=== PATIENT | male | born 1975 | race Caucasian/White ===

== ENCOUNTER 2018-02-25 05:52 | Emergency (ER) | payer OTHER ==
[~2018-02-25] VITALS: Ht 175.3 cm; Wt 83.9 kg
--- NOTE | 2018-02-25 06:12 | ED GENERAL ADULT ---
See Addendum History of Present Illness General Chief Complaint: Wheezing/Asthma Stated Complaint: ASTHMA EXACERBATION PER PT Source: patient Exam Limitations: no limitations Vital Signs & Intake/Output Vital Signs & Intake/Output Vital Signs Date Time Temp Pulse Resp B/P B/P Pulse O2 O2 Flow FiO2 Mean Ox Delivery Rate 02/26 0847 98.1 71 16 130/78 95 Room Air 02/25 0841 93 02/25 0615 94 Room Air 02/25 0559 98.7 70 20 127/87 94 Room Air Triage Note: PT HERE WITH C/O BEING AWOKEN WITH UNABLE TO BREATH. PER PT WOKE UP AT 2 AM AND HAD TO USE INHALER. PT REPORTS STOMACH IS "BOTHERING ME". PT REPORTS THIS IS BEEN GOING ON A FEW WEEKS. PT HAS NOT CALLED PMD BUT HAS GONE TO A WALK IN CLINIC AND WAS GIVEN INHALER. Triage Nurses Notes Reviewed? yes Onset: Abrupt Duration: hour(s): Timing: recent history HPI: 42 year old male presents to the Emergency Department for asthma attacks at night for the past few months. He reports increased use of his inhailer. He states that when he eats he feels full in his abdomen. The patient's was concerned because he was profoundly tachypnea earlier this evening. He says that he feels like it's something more than his asthma because he has abdominal bloating. He denies any fever or vomiting. He is moving his bowels normally. He does not have any abdominal pain. (Amrik Franco DO) Allergies Coded Allergies: No Known Allergies (02/25/18) Reconcile Medications Albuterol Sulfate (Proair Hfa) 90 MCG HFA.AER.AD 2 PUF INH Q4-6 PRN PRN SHORTNESS OF BREATH (Reported) Azithromycin (Zithromax) 250 MG TABLET 1 TAB PO DAILY pneumonia Metoclopramide HCl (Reglan) 10 MG TABLET 1 TAB PO 4 TIMES/DAY PRN GERD 30 minutes before meals and bedtime Omeprazole 40 MG CAPSULE.DR 1 CAP PO DAILY GERD Prednisone 20 MG TABLET 1 TAB PO BID asthma (Franki CARTAGENA,[place]) Past History Travel History Traveled to [place] past 21 day No Medical History Any Pertinent Medical History? see below for history Neurological: NONE EENT: NONE Cardiovascular: NONE Respiratory: asthma Gastrointestinal: NONE Hepatic: NONE Renal: NONE Musculoskeletal: NONE Psychiatric: NONE Endocrine: diabetes Blood Disorders: NONE Cancer(s): NONE DISTRICT CAPTAIN/Reproductive: NONE Surgical History Surgical History: cholecystectomy, knee surgery Psychosocial History What is your primary language Bengali Tobacco Use: Never used ETOH Use: denies use Illicit Drug Use: marijuana Family History Hx Contributory? No (Amrik Franco DO) Review of Systems Review of Systems Constitutional: Reports: see HPI. Denies: fever. EENTM: Reports: no symptoms. Denies: blurred vision, double vision, visual changes. Respiratory: Reports: see HPI. Cardiovascular: Reports: no symptoms. Denies: chest pain. GI: Reports: see HPI, bloating. Genitourinary: Reports: no symptoms. Musculoskeletal: Reports: no symptoms. Skin: Reports: no symptoms. Neurological/Psychological: Reports: no symptoms. Hematologic/Endocrine: Reports: no symptoms. Immunologic/Allergic: Reports: no symptoms. All Other Systems: Reviewed and Negative (Amrik Franco DO) Physical Exam Physical Exam General Appearance: well developed/nourished, alert, awake, mild distress Head: atraumatic, normal appearance Eyes: Bilateral: normal appearance, PERRL, EOMI. Ears, Nose, Throat: normal ENT inspection Neck: normal inspection, full range of motion Respiratory: Poor entry bilaterial Cardiovascular: regular rate/rhythm Peripheral Pulses: 4+ radial (R), 4+ radial (L) Gastrointestinal: soft, non-tender Back: normal inspection, normal range of motion Extremities: normal inspection, normal range of motion Neurologic/Psych: no motor/sensory deficits, awake, alert, oriented x 3 Skin: intact, normal color, warm/dry Core Measures ACS in differential dx? No CVA/TIA Diagnosis: No Sepsis Present: No Sepsis Focused Exam Completed? No (Amrik Franco DO) Progress Differential Diagnoses I considered the following diagnoses in my evaluation of the patient: [Asthma, gastroesophageal reflux, pancreatitis, bowel obstruction, pneumothorax, pneumonia, pulmonary embolism, ] Plan of Care: Orders Procedure Date/time Status TROPONIN LEVEL 02/25 629 Complete LIPASE 02/25 629 Complete D-DIMER 02/25 629 Complete COMPREHENSIVE METABOLIC PANEL 02/25 629 Complete CBC WITHOUT DIFFERENTIAL 02/25 629 Complete EKG 02/25 629 Active Laboratory Tests 02/25/18 0640: Anion Gap 9, Estimated GFR > 60, BUN/Creatinine Ratio 25.0, Glucose 155 H, Calcium 9.6, Total Bilirubin 0.2, AST 84 H, ALT 90 H, Alkaline Phosphatase 47, Troponin I < 0.01, Total Protein 6.9, Albumin 4.1, Globulin 2.8, Albumin/ Globulin Ratio 1.5, Lipase 109, D-Dimer High Sensitivty < 200, CBC w Diff NO MAN DIFF REQ, RBC 4.94, MCV 87.6, MCH 29.3, MCHC 33.5, RDW 13.7, MPV 9.2, Gran % 48.4, Lymphocytes % 31.0, Monocytes % 5.9, Eosinophils % 13.8 H, Basophils % 0.9, Absolute Granulocytes 4.4, Absolute Lymphocytes 2.8, Absolute Monocytes 0.5 , Absolute Eosinophils 1.2, Absolute Basophils 0.1 Initial ED EKG: none (Amrik Franco DO) Differential Diagnoses I considered the following diagnoses in my evaluation of the patient: Diagnostic Imaging: Viewed by Me: Radiology Read. Discussed w/RAD: Radiology Read. CXR Impression: The left costophrenic angle is omitted from the film. There is partially visualized tracheal opacity at the left lung base, most likely atelectasis. Focal pneumonitis or early pneumonia considered less likely. Nonobstructive abdominal bowel gas pattern. Comments: Hx of GERD on omeprazole with 2 weeks of nocturnal wheezing, worse in morning. Likely recurrent GERD with bronchospasm. Will treat for pneumonia, asthma, GERD. ([place]o Doan MD) Departure Departure Condition: Stable Referrals: Patient Has No Primary Care Dr (PCP/Family) Comments The patient will be signed out to Dr. Doan at 7 AM. (Amrik Franco DO) Departure Time of Disposition: 929 Disposition: HOME OR SELF CARE Clinical Impression Primary Impression: Pneumonia Secondary Impressions: Asthma, GERD (gastroesophageal reflux disease) Departure Forms: Customer Survey General Discharge Information RELEASE- WORK Prescriptions: Current Visit Scripts Prednisone 1 TAB PO BID #10 TAB Metoclopramide HCl (Reglan) 1 TAB PO 4 TIMES/DAY PRN GERD #30 TAB 30 minutes before meals and bedtime Omeprazole 1 CAP PO DAILY #30 CAP Azithromycin (Zithromax) 1 TAB PO DAILY #4 TAB ([place]o Doan MD) Critical Care Note Critical Care Note Critical Care Time: non-applicable (Amrik Franco DO) (Franki CARTAGENA,[place]) Critical Care Note Critical Care Note Critical Care Time: non-applicable (Amrik Franco DO)
[2018-02-25 06:56] LABS: ABSOLUTE BASOPHIL COUNT 0.1 /CUMM (0.0-0.2); ABSOLUTE EOSINOPHIL COUNT 1.2 /CUMM (0.0-0.7); ABSOLUTE GRANULOCYTE CT 4.4 /CUMM (1.4-6.5); ABSOLUTE LYMPH COUNT 2.8 /CUMM (1.2-3.4); ABSOLUTE MONOCYTE COUNT 0.5 /CUMM (0.10-0.60); BASOPHIL % 0.9 % (0.0-2.0); EOSINOPHIL % 13.8 % (0-5); GRANULOCYTE % 48.4 % (42.2-75.2); HEMATOCRIT 43.2 % (42-52); MEAN CORPUSCULAR HGB 29.3 PG (27.0-31.0); MEAN CORPUSCULAR HGB CONC 33.5 G/DL (33.0-37.0); MEAN CORPUSCULAR VOLUME 87.6 FL (80.0-94.0); MEAN PLATELET VOLUME 9.2 FL (7.4-10.4); PLATELET COUNT 270 /CUMM (130-400); RBC DISTRIBUTION WIDTH 13.7 % (11.5-14.5); RED BLOOD CELL CT 4.94 /CUMM (4.70-6.10)
--- NOTE | 2018-02-25 07:53 | RADIOLOGY REPORT ---
EXAMINATION: XRY-CHEST XRAY, TWO VIEWS [id number] VIEWS CLINICAL INFORMATION: Asthma, rule out pneumonia. Bloating, rule out obstruction. COMPARISON: None. TECHNIQUE: PA and lateral views of the chest. AP and upright views of the abdomen and pelvis. FINDINGS: Left costophrenic angle is omitted from the film. There is partially visualized streaky opacity at the left lung base, more likely atelectasis than aspiration or pneumonia. Normal pulmonary vascularity. No pleural effusion or pneumothorax. Normal heart size. Regional skeleton intact. Cholecystectomy clips are seen in the right upper quadrant. There is a paucity of abdominal bowel gas. Gas is seen within nondilated stomach, small bowel, and colon. No air-fluid levels are seen. Gas is seen distally to the sigmoid colon or upper rectum. Mild degenerative changes of the thoracic spine and hips. Mild convex left lumbar scoliosis with apex at L2. IMPRESSION: The left costophrenic angle is omitted from the film. There is partially visualized tracheal opacity at the left lung base, most likely atelectasis. Focal pneumonitis or early pneumonia considered less likely. Nonobstructive abdominal bowel gas pattern.
[2018-02-25] MEDS ORDERED: ZITHROMAX250 M2 PO (08:27)
[2018-02-25] MEDS ORDERED: OMEPRAZOLE40 M1 PO (08:27)
[2018-02-25] MEDS ORDERED: PREDNISONE20 M1 PO (08:27)
[2018-02-25] MEDS ORDERED: REGLAN10 M1 PO (08:27)
[2018-02-25] MEDS ORDERED: PROAIR HFA8.5 GM INH (08:28)
[2018-02-25 08:47] VITALS: BP 130/78
== END 2018-02-25 09:47 ==
LOC: ERH 05:52
PROVIDERS: Emergency Medicine
DX: J18.9 Pneumonia, unspecified organism (principal); J45.901 Unspecified asthma with (acute) exacerbation; K21.9 Gastro-esophageal reflux disease without esophagitis
CPT/HCPCS: 1263; 71046; 74021; 93005; 93010; 96374; J0456; J2930; J7040